=== PATIENT | male | born 1980 | race Caucasian/White ===

== ENCOUNTER 2017-11-18 15:17 | Emergency (ER) | payer SELFPAY | END 2017-11-18 15:30 | disposition left against medical advice (07) | LOC: UCEAST 15:17 | DX: Z76.0 Encounter for issue of repeat prescription (principal); Z53.21 Procedure and treatment not carried out due to patient leaving prior to being seen by health care provider ==

== ENCOUNTER 2017-11-18 16:56 | Emergency (ER) | payer SELFPAY ==
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
[2017-11-18 19:02] VITALS: BP 141/76
== END 2017-11-18 19:01 | disposition home or self-care (01) ==
LOC: ED 16:56
DX: Z76.0 Encounter for issue of repeat prescription (principal); F17.210 Nicotine dependence, cigarettes, uncomplicated; M79.1 Myalgia
CPT/HCPCS: 99281

== ENCOUNTER 2019-01-05 16:14 | Emergency (ER) | payer SELFPAY ==
[2019-01-05 16:31] VITALS: BP 135/70
--- NOTE | 2019-01-05 17:11 | UC ---
General HPI - HPI Summary HPI Summary: 38-year-old male with history of drug dependence presents requiring medication refill. He states that he is out of his Wellbutrin 150 mg and his gabapentin 300 mg tablets that he takes for depression and neuropathic pain respectively. He was recently discharged from a court ordered rehabilitation and doesn't have a primary care doctor local. He also has a talus fracture in his left foot for which he had the cast removed as it got wet. He states he should be wearing a splint but has not done so. He has not had any local follow-up for this. He is not currently on Suboxone therapy or any other opiates. He did call [facility] which had him scheduled out for 6 weeks. - History of Current Complaint Chief Complaint: UCGeneralIllness Stated Complaint: MED REFILL Time Seen by Provider: 01/05/19 16:46 Hx Obtained From: Patient Pain Intensity: 0 - Allergy/Home Medications Allergies/Adverse Reactions: Allergies Allergy/AdvReac Type Severity Reaction Status Date / Time No Known Allergies Allergy Verified 01/05/19 16:35 Home Medications: Home Medications Loratadine 10 mg PO DAILY 01/05/19 [History Confirmed 01/05/19] traZODone TAB* [Desyrel TAB*] 1 tab PO BEDTIME 01/05/19 [History Confirmed 01/05] PMH/Surg Hx/FS Hx/Imm Hx Neurological History: Other - Neuropathic pain Psychological History: Anxiety, Depression Other History Of: Negative For: Anticoagulant Therapy - Surgical History Surgical History: Yes Surgery Procedure, Year, and Place: facial surgery - Family History Known Family History: Positive: None - Social History Occupation: Unemployed Alcohol Use: None Alcohol Amount: PT denies Substance Use Type: None Substance Use Comment - Amount & Last Used: hx IV drug use, pt. denies current use - at [facility] Smoking Status (MU): Current Every Day Smoker Type: Cigarettes Amount Used/How Often: 1 PPD Length of Time of Smoking/Using Tobacco: since he was 20 years old - Immunization History Most Recent Influenza Vaccination: never Most Recent Tetanus Shot: unknown Most Recent Pneumonia Vaccination: unknown Review of Systems All Other Systems Reviewed And Are Negative: Yes Constitutional: Positive: Negative Respiratory: Positive: Negative Cardiovascular: Positive: Negative Motor: Positive: Decreased ROM, Other - Pain in the left ankle and foot Neurological: Positive: Negative Psychological: Positive: Negative Physical Exam Triage Information Reviewed: Yes Appearance: Well-Appearing, No Pain Distress Vital Signs: Initial Vital Signs Temp 98 F 01/05/19 16:25 Pulse 55 01/05/19 16:25 Resp 16 01/05/19 16:25 BP 135/70 01/05/19 16:25 Pulse Ox 99 01/05/19 16:25 ENT: Positive: Normal ENT inspection Neck: Positive: Supple Respiratory: Positive: Chest non-tender, Lungs clear Cardiovascular: Positive: RRR Musculoskeletal: Positive: Other: - Left foot is wrapped with 2 layers of Tesfaye wrap. Lint. Mild edema and redness throughout the foot and ankle and lower leg Psychological: Positive: Normal Response To Family, Age Appropriate Behavior Skin Exam: Normal Course/Dx - Course Course Of Treatment: Nurse's notes reviewed. I queried [place] [facility] and found only recent prescriptions for Suboxone. He last filled 7 tablets on 13 November. This is congruent with his history of not being on the medication any longer. He did give me blister packs of his medications from rehabilitation stay. His medications were filled as requested for 7 days time only. He was given [facility] follow-up which generally can see him in the next 1-2 days. He also was given local orthopedic referral for the [place] orthopedist. - Diagnoses Provider Diagnosis: Medication refill, Fracture of talus of left ankle, closed Discharge - Sign-Out/Discharge Documenting (check all that apply): Patient Departure All imaging exams completed and their final reports reviewed: No Studies - Discharge Plan Condition: Improved Disposition: HOME Prescriptions: buPROPion SR TAB* [Wellbutrin SR TAB*] 150 mg PO BID #14 tab.sr Gabapentin CAP(*) [Neurontin 300 CAP(*)] 600 mg PO TID #42 cap Referrals: [facility] [Outside] [facility] [place] [facility] [Outside] Elijah Zambrano MD [Medical Doctor] - Additional Instructions: Call the [facility] for prompt follow-up. They can usually see you in the next 1-2 days. Recheck clinic and also follow you up, be sure to make an appointment. He'll also been given primary care referral and referral to the [place] orthopedic surgeon. Call to make appointments. Return if worse , new symptoms or other concerns. - Billing Disposition and Condition Condition: IMPROVED Disposition: Home - Attestation Statements Document Initiated by Ema: Sharri
== END 2019-01-05 17:10 | disposition home or self-care (01) ==
LOC: UCEAST 16:14
DX: Z76.0 Encounter for issue of repeat prescription (principal); S82.892D Other fracture of left lower leg, subsequent encounter for closed fracture with routine healing; X58.XXXD Exposure to other specified factors, subsequent encounter; F32.9 Major depressive disorder, single episode, unspecified
CPT/HCPCS: 99212; G0463